=== PATIENT | male | born 1960 | race Caucasian/White ===

== ENCOUNTER 2020-07-29 09:50 | Emergency (ER) | payer OTHER, SELFPAY ==
--- NOTE | ~2020-07-29 | XR_ITS ---
EXAMINATION: XR elbow LT min 3V DATE: 07/29/2020 10:10 INDICATION: Stroke left elbow pain and swelling post fall TECHNIQUE: Anteroposterior, two oblique and lateral views of the left elbow were obtained. COMPARISON: None. FINDINGS: Alignment is normal. No fracture or joint effusion. Joint spaces are normal. Small enthesophytes at t he olecranon as well as the left humeral medial and lateral epicondyles. Soft tissue swelling posteri or to the olecranon. IMPRESSION: 1. Left elbow joint effusion or acute osseous abnormality. Reviewed, dictated and finalized at location A.
[2020-07-29 09:56] VITALS: BP 161/82; PULSE 87; RESP 20; TEMP 36.3; O2SAT 100
--- NOTE | 2020-07-29 10:17 | ED.UPPEXIN ---
HPI - Extremity Injury (Upper) General Chief Complaint: Extremity Injury, Upper Stated Complaint: l elbow swelling Source: patient and RN notes reviewed Limitations: no limitations History of Present Illness HPI narrative: The right-handed patient, previously mostly healthy, presents with elbow discomfort. Patient states he has about half week history of nontender, swelling of his left elbow. Symptoms are mild, minimally worse with activity. He has no recent trauma, but recalls slipping and falling several months ago in May with nearly complete resolution of symptoms- after about a month. He recalls he may have been leaning on that side with flying, working and driving. He also requests refill of skin/ear dermatitis creams, no prior hx of arthritides. Related Data Home Medications Medication Instructions Recorded Confirmed atorvastatin 07/29/20 07/29/20 fenofibrate micronized [Tricor] mg PO 07/29/20 Allergies Allergy/AdvReac Type Severity Reaction Status Date / Time No Known Allergies Allergy Verified 07/29/20 09:57 Review of Systems Review of Systems: Narrative: General/Constitutional: No weight loss,fever Eyes: N0: Redness,discharge Ears/Nose/Throat: No: Epistaxis,ear discharge Respiratory: Denies: Hemoptysis Gastrointestinal: No Vomiting, Bleeding-rectal Skin: No Lumps, eruption Neurologic: No Focal Weakness,Sz Hematologic: Denies: Petechiae/Purpura Psychiatric: No: Suicida ideationl All Other Systems: Reviewed and Negative [facility] Comments At time of signature, agree with nursing past medical, surgical, social and family history. There is no relevant family history pertinent to the presenting complaint Exam Narrative: Exam Narrative: General Appearance: Well appearing, Conjunctiva clear Mouth/Throat: Normal appearing, Normal lips Supple Respiratory: Airway patent, No respiratory distress Skin: Swollen left olecranon with out redness and warmth , Dry, Normal color MS-elbow: Nl strength (mostly intact, unlimited flexion/extension , Min tenderness bursa, without mild decreased ROM), Swelling olecranon, Other (no anterior drawer, no collateral laxity,) Neurological: A&O x3, Normal affect Course Vital Signs Vital signs: Vital Signs Temperature 97.3 F L 07/29/20 09:56 Pulse Rate 87 07/29/20 09:56 Respiratory Rate 20 07/29/20 09:56 Blood Pressure 161/82 H 07/29/20 09:56 Pulse Oximetry 100 07/29/20 09:56 Temperature 97.3 F L 07/29/20 09:56 Pulse Rate 87 07/29/20 09:56 Respiratory Rate 20 07/29/20 09:56 Blood Pressure 161/82 H 07/29/20 09:56 Pulse Oximetry 100 07/29/20 09:56 Discharge Plan Discharge Clinical Impression: Olecranon bursitis of left elbow Patient Disposition: Home, Self-Care Condition: Stable Instructions: Elbow Bursitis (ED) Prescriptions: New triamcinolone acetonide 0.1 % cream 1 applic topical BID Qty: 15 RF: 1 prednisone 20 mg tablet 60 mg PO DAILY Qty: 15 RF: 0 [id number] 3.5-10,000-1 mg/mL-unit/mL-% solution 4 drp RIGHT EAR Q8H Qty: 10 RF: 0 No Action Tricor 160 mg Tablet PO RF: 0 atorvastatin 20 mg tablet RF: 0 Follow-up/Referrals: Juan Ma MD [Primary Care Provider] -
== END 2020-07-29 10:40 | disposition home or self-care (01) ==
PROVIDERS: Emergency Provider Emergency Medicine; PCP Family Medicine Adolescent Medicine
DX: M70.22 Olecranon bursitis, left elbow (principal); E78.00 Pure hypercholesterolemia, unspecified; K21.9 Gastro-esophageal reflux disease without esophagitis; Z85.46 Personal history of malignant neoplasm of prostate; M47.9 Spondylosis, unspecified
CPT/HCPCS: 73080; 99203; G0463

== ENCOUNTER 2023-02-17 10:13 | Outpatient (CLI) | payer OTHER, SELFPAY ==
--- NOTE | 2023-02-17 10:19 | ECG_ITS ---
Measurements Intervals [place] Rate: 77 P: 65 MI: 179 QRS: 8 QRSD: 131 T: 52 QT: 391 QTc: 444 Interpretive Statements SINUS RHYTHM POSSIBLE LEFT ATRIAL ENLARGEMENT INTRAVENTRICULAR CONDUCTION DELAY BORDERLINE R WAVE PROGRESSION, ANTERIOR LEADS MINIMAL Q WAVES- INFERIOR LEADS BORDERLINE ECG NO PREVIOUS ECG AVAILABLE FOR COMPARISON Electronically Signed On 02-17-2023 11:01:33 CDT by Daniel Arzate D.O.
== END 2023-02-17 10:14 | disposition home or self-care (01) ==
PROVIDERS: PCP Family Medicine Adolescent Medicine; Visit Provider Urology
DX: E78.2 Mixed hyperlipidemia (principal)
CPT/HCPCS: 93005

== ENCOUNTER 2023-02-20 01:44 | Day surgery (SDC) | payer OTHER, SELFPAY ==
[2023-02-12 15:47] VITALS: BMI 31.1
--- NOTE | 2023-02-12 15:53 | PC.NURSE ---
Report to the Outpatient Waiting Room, entrance under the green pavilion located off [facility], at time 7:00 on date 02/20/23. Planned Procedure Time: 9:00. Time changes happen often and if your time is changed the preop area will call you the afternoon before. - You and your visitor will be asked to self-screen and do not enter if you have any COVID symptoms. - A mask is optional within the hospital at this time. Patients may have clear liquids (water, carbonated beverages, clear teas, apple juice) until 3 hours prior to surgery with a maximum of 20 ounces. - No food from midnight until time of surgery Take the following medications with a SIP of water the morning of surgery: NONE DO NOT STOP ANY OF YOUR OTHER PRESCRIPTION MEDICATIONS PRIOR TO SURGERY EXCEPT THE FOLLOWING Medications to discontinue per physician: VITAMINS/SUPPLEMENTS Date to take last dose: 02/16/23 (OR PER DR. DOUGLAS) FOLLOW INSTRUCTIONS FROM DR. DOUGLAS REGARDING ASPIRIN Please no make-up, nail estonian, hairspray, perfume, deodorant, or body powder the day of surgery. No jewelry (including any body piercings) or valuables the day of surgery, leave them at home. Please take a shower or bath the night before, or the morning of, surgery with an antibacterial soap. Wear comfortable, loose fitting clothing. - Jewelry must be removed prior to entering the operating room. Rings and piercings that are not removed may be cut off. - The hospital will not accept responsibility for valuables. - Please leave all valuables, including medications, at home the day of surgery. If you are going home after surgery, a licensed class a regional drivers must drive you home. - NO public transportation without another adult if you receive anesthesia. - We recommend that an adult stay with you for 24 hours following discharge. - We also recommend that you do not drive, make important decision, drink alcoholic beverages, or take any drugs that were not prescribed by your health care provider for at least 24 hours after your discharge time. Follow any additional instructions given to you from your surgeon. If you or anyone in your household have experienced Covid symptoms in the past week, please notify your surgeon or the nurse liaison at the phone number below for possible testing. Telephone instructions given to PT - LOULOU KAPLAN and asked if any additional questions and then verbalized understanding. Patient advised to call surgeon office or pre surgery nurse liaison [phone] if any additional questions.
--- NOTE | 2023-02-17 07:20 | PM.HPGS ---
History of Present Illness History of Present Illness Consent: Risks, benefits, and alternatives have been discussed and questions answered. Patient agrees to proceed with procedure. Chief complaint: Balanitis Narrative: Oleg Laws is a 63 year old male, well known to our practice with a history of prostate cancer status post brachytherapy in the remote past, who has persistent and progressive phimosis. This is causing difficulty with retraction of foreskin and cleaning. After discussion of options he has elected to proceed with a circumcision. He is aware the risk including, but not limited to, adverse cardiopulmonary events, phallic hematoma. Review of Systems Cardiovascular: Cardiovascular: Denies chest pain, Denies lightheadedness, Denies palpitations and Denies dyspnea Respiratory: Respiratory: Denies dyspnea Gastrointestinal: Gastrointestinal: Denies diarrhea, Denies nausea and Denies vomiting Genitourinary: Genitourinary: Denies hematuria and Denies dysuria Endocrine: Endocrine: Denies palpitations PMF Past Medical History Medical History (Updated 02/17/23 @ 07:22 by Ramon Arellano MD) History of prostate cancer (~2014) 2014 Normal colonoscopy 09/15 Seborrheic dermatitis Surgical History Surgical History (Updated 12/14/21 @ 07:12 by Juan Ma MD) History of prostate surgery 2015 Brachytherapy S/P LASIK surgery of both eyes Social History Social History (Updated 12/17/21 @ 10:05 by Marco Stewart MA) Smoking status: Never smoker Tobacco type: cigars Second hand tobacco smoke exposure: No Alcohol intake: current Drinks per week: 8 Alcohol use details: Recreational Substance use: never Substance use type: does not use Living arrangements: with family Occupation/Education: occupation Gender identity (if verbalized by the patient): Male Sexual Orientation (if Verbalized by the Patient): Straight or Heterosexual Spiritual care concerns: No Agree to blood products: Yes Meds Home Medications and Allergies Home Medications Medication Instructions Recorded Confirmed Type triamcinolone acetonide 0.1 % 1 applic topical BID #15 grams 07/29/20 02/12/23 Rx topical cream ascorbate calcium (vitamin C) 500 500 mg PO DAILY 12/12/21 02/12/23 History mg tablet aspirin 81 mg tablet,delayed 81 mg PO DAILY 12/12/21 02/12/23 History release (Adult Aspirin Regimen) glucosamine sulfate 500 mg tablet 500 mg PO DAILY 12/12/21 02/12/23 History (Glucosamine) omeprazole 20 mg capsule,delayed 20 mg PO DAILY 12/12/21 02/12/23 History release atorvastatin 40 mg tablet 40 mg PO DAILY #90 tabs 10/09/22 02/12/23 Rx fenofibrate 160 mg tablet See Rx Instructions .Route 11/07/22 02/12/23 Rx .COMPLEX #90 tabs trazodone 100 mg tablet 100 mg PO QHS #90 tabs 02/04/23 02/12/23 Rx multivitamin 1 tablet PO DAILY 02/12/23 02/12/23 History vitamin E 670 mg (1,000 unit) 670 mg PO DAILY 02/12/23 02/12/23 History capsule Allergies Allergy/AdvReac Type Severity Reaction Status Date / Time No Known Allergies Allergy Verified 02/12/23 15:45 Exam Const: General: no acute distress Resp: Effort & Inspection: normal respiratory effort GI: Inspection: non-distended GI Palp: No abdominal tenderness and No Guarding due to palpation present (GI) Auscultation: normal bowel sounds : Penis: Yes uncircumcised and Yes phimosis Assessment and Plan Assessment and plan (1) History of prostate cancer: Code(s): Z85.46 - Personal history of malignant neoplasm of prostate Status: Acute (2) Phimosis: Code(s): N47.1 - Phimosis Status: Acute Assessment and Plan: Circumcision
--- NOTE | 2023-02-20 06:33 | WPDHPUPDATE1 ---
History and Physical Update Update Date/Time: 02/20/23 06:33 History and Physical has been reviewed, including an updated exam of the patient. There are NO changes in the patient's condition. Risks, benefits, and alternatives have been discussed and questions answered. Patient agrees to proceed with procedure.
[2023-02-20 11:05] VITALS: BP 147/87; PULSE 72; RESP 16; TEMP 36.6; O2SAT 99
--- NOTE | 2023-02-20 11:19 | WPDANESEPPF ---
Anes - Initial Pre Proc Eval Procedure: Operation Date: 02/20/23 13:00 Proposed Procedures p Circumcision - Ramon Arellano MD Date/Time: 02/20/23 11:19 Surgeon: Ramon Arellano MD Pre Op Diagnosis: Balanitis Patient Data Age: 63 Gender: M Height: 1.98 m Weight: 122.5 kg Allergies Allergy/AdvReac Type Severity Reaction Status Date / Time No Known Allergies Allergy Verified 02/12/23 15:45 Home Medications Medication Instructions Recorded Confirmed Type triamcinolone acetonide 0.1 % 1 applic topical BID #15 grams 07/29/20 02/12/23 Rx topical cream ascorbate calcium (vitamin C) 500 500 mg PO DAILY 12/12/21 02/12/23 History mg tablet aspirin 81 mg tablet,delayed 81 mg PO DAILY 12/12/21 02/12/23 History release (Adult Aspirin Regimen) glucosamine sulfate 500 mg tablet 500 mg PO DAILY 12/12/21 02/12/23 History (Glucosamine) omeprazole 20 mg capsule,delayed 20 mg PO DAILY 12/12/21 02/12/23 History release atorvastatin 40 mg tablet 40 mg PO DAILY #90 tabs 10/09/22 02/12/23 Rx fenofibrate 160 mg tablet See Rx Instructions .Route 11/07/22 02/12/23 Rx .COMPLEX #90 tabs trazodone 100 mg tablet 100 mg PO QHS #90 tabs 02/04/23 02/12/23 Rx multivitamin 1 tablet PO DAILY 02/12/23 02/12/23 History vitamin E 670 mg (1,000 unit) 670 mg PO DAILY 02/12/23 02/12/23 History capsule Patient hx anesthesia problems: none Family hx anesthesia problems: none Results Review: All pre-operative results and documents have been reviewed as part of the pre-operative evaluation. [facility] Past Medical History Medical History (Updated 02/20/23 @ 11:21 by Vivek Paul MD) Chronic GERD History of prostate cancer (~2014) 2014 History of prostate cancer Lumbar spinal stenosis Mixed hyperlipidemia Normal colonoscopy 09/15 Phimosis Seborrheic dermatitis Surgical History Surgical History (Updated 12/14/21 @ 07:12 by Juan Ma MD) History of prostate surgery 2015 Brachytherapy S/P LASIK surgery of both eyes Social History Social History (Updated 12/17/21 @ 10:05 by Marco Stewart MA) Smoking status: Never smoker Tobacco type: cigars Second hand tobacco smoke exposure: No Alcohol intake: current Drinks per week: 8 Alcohol use details: Recreational Substance use: never Substance use type: does not use Living arrangements: with family Occupation/Education: occupation Gender identity (if verbalized by the patient): Male Sexual Orientation (if Verbalized by the Patient): Straight or Heterosexual Spiritual care concerns: No Agree to blood products: Yes Anes - Eval Final PreProcedure Day of Procedure 02/20/23 11:19 Patient weight: obese Heart: regular rate and rhythm Lungs: clear to auscultation and normal air movement Airway: Mallampati scale class II Neurological: alert and oriented Last oral intake: >/= 8 hours ASA classification: III Emergent: no Anesthetic plan: proceed Anesthesia type and monitoring: general LMA Results Review: All pre-operative results and documents have been reviewed as part of the pre-operative evaluation. Informed Consent: The patient's anesthetic plan and its attendant risks and benefits were discussed with the patient/family/POA. Questions were solicited and answers provided to the satisfaction of the patient/family/POA.
[2023-02-20] MEDS: LACTATED RINGERS 1,000 ML 30 ML IV CONT (11:20)
[2023-02-20 11:27] VITALS: BMI 31.4
[2023-02-20] MEDS: ceFAZolin 3 GM/D5W 100 ML 100 ML IVPB (11:59)
[2023-02-20] MEDS: BUPivacaine HCL 0.5% PF 30 ML VIAL INFILTRATE (12:40)
--- NOTE | 2023-02-20 12:47 | W.PM.PROC2 ---
Procedure Note - Detailed Date of Procedure 02/20/23 Pre-op Diagnosis Balanitis (recurrent), phimosis Post-op Diagnosis Same Procedure Performed Circumcision. Surgeon Ramon Arellano MD Anesthesia General Description of Procedure The patient is brought to the operative suite areas prepped and draped in a routine sterile fashion while in a supine position. The lines of circumcision are outlined using a sterile marking pen. 2 circumferential circumcising incisions were made and carried down to Colle's fascia. The penile foreskin is circumferentially excised. Hemostasis is obtained with electric cautery. The edges of the penile skin reapproximated using a combination of running and interrupted 4-0 chromic. A penile block is administered at the base of the penis with 0.25% bupivacaine. The patient was taken to the recovery room in good condition. EBL was approximately 10cc. Estimated Blood Loss 10 Drains No Packing No Pathology Yes Complications No immediate complications Condition Stable
[2023-02-20 12:49] VITALS: BP 147/94; PULSE 76; RESP 9; TEMP 36.5; O2SAT 98
--- NOTE | 2023-02-20 12:50 | W.PM.PROC2 ---
Procedure Note - Detailed Date of Procedure 02/21/23 Pre-op Diagnosis Balanitis Post-op Diagnosis Same Procedure Performed Circumcision Surgeon Ramon Arellano MD Anesthesia General Description of Procedure The patient is brought to the operative suite areas prepped and draped in a routine sterile fashion while in a supine position. The lines of circumcision are outlined using a sterile marking pen. 2 circumferential circumcising incisions were made and carried down to Colle's fascia. The penile foreskin is circumferentially excised. Hemostasis is obtained with electric cautery. The edges of the penile skin reapproximated using a combination of running and interrupted 4-0 chromic. A penile block is administered at the base of the penis with 0.25% bupivacaine. The patient was taken to the recovery room in good condition. EBL was approximately 10cc. Estimated Blood Loss 10
[2023-02-20 13:00] VITALS: BP 159/98; PULSE 72; RESP 12; O2SAT 100
[2023-02-20] MEDS: fentaNYL CITRATE INJ (*CRX) 100 MCG/2 ML VIAL 25 MCG IV PUSH ×2 (13:12→13:14)
[2023-02-20 13:15] VITALS: BP 151/97; PULSE 73; RESP 13; O2SAT 100
[2023-02-20 13:24] VITALS: BP 143/93; PULSE 76; RESP 20; O2SAT 100
[2023-02-20 13:30] VITALS: BP 128/75; PULSE 67; RESP 12
== END 2023-02-20 14:14 | disposition home or self-care (01) ==
PROVIDERS: PCP Family Medicine Adolescent Medicine; Visit Provider Urology
PROC: (CPT 54161; principal; 2023-02-20 13:00)
DX: N48.1 Balanitis (principal); N47.1 Phimosis; Z85.46 Personal history of malignant neoplasm of prostate
CPT/HCPCS: 54161; 88304; A9270; J0690; J1100; J2405; J2704; J3010; J7120